=== PATIENT | male | born 1970 | race African-American/Black ===

== ENCOUNTER 2018-07-27 20:41 | Inpatient (IN) | payer MEDICAID, OTHER ==
[~2018-07-27] VITALS: Ht 170.2 cm; Wt 84.4 kg
[~2018-07-27 20:41] MED LIST: ACET-2047 PO
[2018-07-27 22:01] LABS: BASOPHILS % 1.8 % (0.0-2.0); EOSINOPHILS % 4.7 % (0.0-5.0); HEMATOCRIT. 40.6 % (42.0-52.0); HEMOGLOBIN. 13.4 g/dL (14.0-18.0); LYMPHOCYTES % 41.3 % (20.0-50.0); MEAN CORPUSCULAR HEMOGLOBIN 29.5 pg (28.0-32.0); MEAN CORPUSCULAR VOLUME 89.1 fL (80.0-94.0); MONOCYTES % 8.8 % (2.0-8.0); NEUTROPHILS % 43.4 % (40.0-76.0); PLATELET 342 x1000/uL (130-400); RED BLOOD CELL COUNT 4.56 mill/uL (4.7-6.1); RED CELL DISTRIBUTION WIDTH 14.4 % (11.6-14.6)
[2018-07-27 22:07] LABS: CHLORIDE 104 mEq/L (98-107)
[2018-07-27] MEDS ORDERED: MAGNESIUM/ALUMINUM HYDROXIDE/SIMETHICONE 30ML UDC PO STA (23:47)
[2018-07-27] MEDS ORDERED: VISCOUS LIDOCAINE 2% 15 ML UDC PO STA (23:47)
[2018-07-28 03:30] VITALS: BP 130/80
[2018-07-28] MEDS ORDERED: CLONIDINE 0.1MG TABLET PO PRN (07:00)
[2018-07-28] MEDS ORDERED: MAGNESIUM/ALUMINUM HYDROXIDE/SIMETHICONE 30ML UDC PO PRN (07:00)
[2018-07-28] MEDS ORDERED: GUAIFENESIN 200MG/10ML SUGAR FREE UDC PO PRN (07:00)
[2018-07-28] MEDS ORDERED: DOCUSATE SODIUM 100MG CAPSULE PO PRN (07:00)
[2018-07-28] MEDS ORDERED: ACETAMINOPHEN 325MG TABLET PO PRN (07:00)
[2018-07-28] MEDS ORDERED: HYDRALAZINE 20MG/ML VIAL IV PRN (07:00)
[2018-07-28] MEDS ORDERED: HYDROCODONE/ACETAMINOPHEN 10/325MG TABLET PO PRN (07:00)
[2018-07-28] MEDS ORDERED: IPRATROPIUM/ALBUTEROL 0.5-3(2.5)MG/3ML NEB INH PRN (07:00)
[2018-07-28] MEDS ORDERED: ONDANSETRON HCL 4MG/2ML INJ IV PRN (07:00)
[2018-07-28] MEDS ORDERED: LORAZEPAM 2MG/ML CPJ IV PRN (07:00)
[2018-07-28] MEDS ORDERED: HYDROMORPHONE HCL/PF 2MG/ML CPJ IV PRN (07:00)
[2018-07-28 08:00] VITALS: BP 111/75
[2018-07-28] MEDS ORDERED: CLOPIDOGREL 75MG TABLET PO SCH (09:00)
[2018-07-28] MEDS ORDERED: ASPIRIN 81MG TABLET PO SCH (09:00)
[2018-07-28] MEDS ORDERED: ENOXAPARIN 40MG/0.4ML SYR SUBCUT SCH (09:00)
[2018-07-28] MEDS ORDERED: SODIUM CHLORIDE 0.9% INJ 3ML FLUSH IVF SCH (14:00)
== END 2018-07-28 09:40 | disposition left against medical advice (07) | DRG 203 ==
LOC: ER 20:41 → UNDOADMIN 07-28 01:35 → 5WST 07-28 01:35 → EDBEDREQTM 07-28 01:44 → EDBEDREQ 07-28 01:44 → ENRESERV 07-28 02:28
PROVIDERS: ADMIT Internal Medicine; ATTEND Internal Medicine
DX: R07.9 Chest pain, unspecified (principal); F17.210 Nicotine dependence, cigarettes, uncomplicated; Z53.21 Procedure and treatment not carried out due to patient leaving prior to being seen by health care provider
CPT/HCPCS: 36415; 71045; 83880; 84484; 85379; 93005; 99285